=== PATIENT | female | born 1985 | race Caucasian/White ===

== ENCOUNTER → 2016-12-25 | Outpatient (CLI) | payer BC | LOC: KOH-I 13:30 → CT 13:30 → KOH-I 13:38 | DX: R31.9 Hematuria, unspecified (principal); M54.5 Low back pain | CPT/HCPCS: 74176 ==

== ENCOUNTER → 2021-01-08 | Outpatient (CLI) | payer BC | LOC: MRI 16:28 | DX: H90.5 Unspecified sensorineural hearing loss (principal) | CPT/HCPCS: 70553; A9577 ==